=== PATIENT | male | born 1960 | race Caucasian/White ===

== ENCOUNTER 2018-12-08 07:22 | Emergency (ER) | payer BC ==
[2018-12-08 07:32] VITALS: RESP 18; TEMP 98
[2018-12-08] MEDS ORDERED: KETOROLAC 30 MG/ML 1 ML VIAL IVP STA (07:37)
[2018-12-08] MEDS ORDERED: SODIUM CHLORIDE 0.9% 1,000 ML IV STA (07:37)
--- NOTE | 2018-12-08 07:41 | ED ---
General Adult HPI - General Chief complaint: Abdominal Pain Stated complaint: back pain, vomiting Time Seen by Provider: 12/08/18 07:33 Source: patient, RN notes reviewed, old records reviewed Mode of arrival: ambulatory Limitations: no limitations - History of Present Illness Initial comments: 58-year-old male with no chronic medical problems presents with left lower quadrant abdominal pain and left flank pain. Pain began 3 hours prior to arrival after the patient had woken to urinate. Patient denies dysuria or hematuria. No history of kidney stones. Patient states he did have bowel movement this morning which was small, nonbloody. No diarrhea. 2 episodes of vomiting prior to arrival. Patient is not on any daily medications. Pain is dull and aching left flank and left lower quadrant. - Related Data Previous Rx's Medication Instructions Recorded Ibuprofen [Motrin] 600 mg PO Q8HR PRN #24 tab 12/08/18 Tamsulosin [Flomax] 0.4 mg PO DAILY #30 cap 12/08/18 Allergies Allergy/AdvReac Type Severity Reaction Status Date / Time hydrocodone Allergy Hallucinati Verified 12/08/18 07:29 ons Review of Systems ROS Statement: Those systems with pertinent positive or pertinent negative responses have been documented in the HPI. ROS Other: All systems not noted in ROS Statement are negative. Past Medical History Past Medical History: No Reported History History of Any Multi-Drug Resistant Organisms: None Reported Past Surgical History: Orthopedic Surgery Additional Past Surgical History / Comment(s): B knee Past Psychological History: No Psychological Hx Reported Smoking Status: Never smoker Past Alcohol Use History: None Reported Past Drug Use History: None Reported General Exam Limitations: no limitations General appearance: alert, in no apparent distress Head exam: Present: atraumatic, normocephalic Eye exam: Present: normal appearance, PERRL ENT exam: Present: normal exam Neck exam: Present: normal inspection. Absent: tenderness, meningismus Respiratory exam: Present: normal lung sounds bilaterally. Absent: respiratory distress Cardiovascular Exam: Present: regular rate, normal rhythm GI/Abdominal exam: Present: soft. Absent: distended, tenderness, guarding Extremities exam: Present: normal inspection, normal capillary refill. Absent: pedal edema Back exam: Present: normal inspection, full ROM, CVA tenderness (L) Neurological exam: Present: alert, oriented X3, CN II-XII intact. Absent: motor sensory deficit Psychiatric exam: Present: normal affect, normal mood Skin exam: Present: warm, dry, intact. Absent: cyanosis, diaphoretic Course Vital Signs 12/08/18 07:29 Temperature 98 F Pulse Rate 73 Respiratory 18 Rate Blood Pressure 146/95 O2 Sat by Pulse 96 Oximetry - Reevaluation(s) Reevaluation #1: 12/08/18 10:29 Patient's pain resolved, asymptomatic Medical Decision Making - Medical Decision Making 58-year-old male presenting with left flank pain, concern for renal colic. X- ray obtained, negative for radiopaque stone. Urinalysis negative for blood, there is 4+ glucose, normal CBC, CMP significant only for hyperglycemia. CT is obtained, which does show 4 mm stone in the bladder. This represents a passed kidney stone. There is mild [place] of the left ureter and kidney. On reevaluation patient asymptomatic. He will be prescribed Flomax, pain medication. He is given a urine strainer in the emergency department. He will return with worsening pain. He will follow-up with urology. He will follow-up with his primary care physician regarding his elevated sugar. - Lab Data Result diagrams: 12/08/18 07:48 12/08/18 07:48 Lab Results 12/08/18 12/08/18 12/08/18 Range/Units 07:48 07:48 07:48 WBC 7.5 (3.8-10.6) k/uL RBC 6.40 H (4.30-5.90) m/uL Hgb 17.1 (13.0-17.5) gm/dL Hct 52.6 (39.0-53.0) % MCV 82.1 (80.0-100.0) fL MCH 26.7 (25.0-35.0) pg MCHC 32.6 (31.0-37.0) g/dL RDW 12.8 (11.5-15.5) % Plt Count 242 (150-450) k/uL Neutrophils % 78 % Lymphocytes % 12 % Monocytes % 6 % Eosinophils % 2 % Basophils % 0 % Neutrophils # 5.9 (1.3-7.7) k/uL Lymphocytes # 0.9 L (1.0-4.8) k/uL Monocytes # 0.4 (0-1.0) k/uL Eosinophils # 0.2 (0-0.7) k/uL Basophils # 0.0 (0-0.2) k/uL Sodium 139 (137-145) mmol/L Potassium 5.4 H (3.5-5.1) mmol/L Chloride 103 (98-107) mmol/L Carbon Dioxide 29 (22-30) mmol/L Anion Gap 7 mmol/L BUN 24 H (9-20) mg/dL Creatinine 1.10 (0.66-1.25) mg/dL Est GFR (CKD-EPI)AfAm 86 (>60 ml/min/1.73 sqM) Est GFR (CKD-EPI)NonAf 74 (>60 ml/min/1.73 sqM) Glucose 269 H (74-99) mg/dL Calcium 9.7 (8.4-10.2) mg/dL Total Bilirubin 1.1 (0.2-1.3) mg/dL AST 28 (17-59) U/L ALT 64 (21-72) U/L Alkaline Phosphatase 74 (38-126) U/L Total Protein 6.9 (6.3-8.2) g/dL Albumin 4.6 (3.5-5.0) g/dL Lipase 67 (23-300) U/L Urine Color Yellow Urine Appearance Clear (Clear) Urine pH 5.0 (5.0-8.0) Ur Specific [place] 1.021 (1.001-1.035) Urine Protein Trace H (Negative) Urine Glucose (UA) 4+ H (Negative) Urine Ketones Negative (Negative) Urine Blood Negative (Negative) Urine Nitrite Negative (Negative) Urine Bilirubin Negative (Negative) Urine Urobilinogen <2.0 (<2.0) mg/dL Ur Leukocyte Esterase Negative (Negative) Disposition Clinical Impression: Calculus of kidney, Hyperglycemia Disposition: HOME SELF-CARE Condition: Good Instructions: Renal Colic (ED), Kidney Stones (ED) Prescriptions: Ibuprofen [Motrin] 600 mg PO Q8HR PRN #24 tab PRN Reason: Pain Tamsulosin [Flomax] 0.4 mg PO DAILY #30 cap Is patient prescribed a controlled substance at d/c from ED?: No Referrals: None,Stated [Primary Care Provider] - 1-2 days Johanne Brown MD [STAFF PHYSICIAN] - 1-2 days Mika Stewart MD [STAFF PHYSICIAN] - 1-2 days Time of Disposition: 10:30
--- NOTE | 2018-12-08 08:12 | XR ---
EXAMINATION TYPE: XR KUB , 2 VIEWS DATE OF EXAM ORDERED: 12/08/2018 HISTORY: abdominal pain. COMPARISON: None. FINDINGS: Lung bases are clear. Within the abdomen, the abdominal gas pattern is normal. There is no evidence of obstruction or free air. No unusual calcifications are seen. There is a mild S-shaped scoliosis convex to the left in the thoracic region and to the right in the lumbar region. IMPRESSION: NONACUTE ABDOMINAL PICTURE.
[2018-12-08 08:42] LABS: Albumin 4.6 g/dL (3.5-5.0); Calcium 9.7 mg/dL (8.4-10.2); Potassium 5.4 mmol/L (3.5-5.1); Total Bilirubin 1.1 mg/dL (0.2-1.3); Total Protein 6.9 g/dL (6.3-8.2)
[2018-12-08 08:52] LABS: Appearance,Urine Clear (Clear); Bilirubin,Urine Negative (Negative); Blood,Urine Negative (Negative); Color,Urine Yellow; Glucose,Urine (UA) 4+ (Negative); Ketones,Urine Negative (Negative); Leukocyte Esterase,Urine Negative (Negative); Nitrite,Urine Negative (Negative); Protein,Urine Trace (Negative); Specific Gravity,Urine 1.021 (1.001-1.035); Urobilinogen,Urine <2.0 mg/dL (<2.0)
[2018-12-08 08:53] LABS: Basophils % (A) 0 %; Eosinophils # (A) 0.2 k/uL (0-0.7); Eosinophils % (A) 2 %; HCT 52.6 % (39.0-53.0); HGB 17.1 gm/dL (13.0-17.5); Lymphocytes # (A) 0.9 k/uL (1.0-4.8); Lymphocytes % (A) 12 %; MCH 26.7 pg (25.0-35.0); MCHC 32.6 g/dL (31.0-37.0); MCV 82.1 fL (80.0-100.0); Mean Platelet Volume 6.3; Monocytes # (A) 0.4 k/uL (0-1.0); Monocytes % (A) 6 %; Neutrophils # (A) 5.9 k/uL (1.3-7.7); Neutrophils % (A) 78 %; Platelet Count 242 k/uL (150-450); RDW 12.8 % (11.5-15.5); WBC 7.5 k/uL (3.8-10.6)
[2018-12-08] MEDS ORDERED: HYDROmorphone 1 MG/ML 1 ML SYRINGE IVP STA (08:55)
--- NOTE | 2018-12-08 09:54 | CT ---
EXAMINATION TYPE: CT abdomen pelvis wo con DATE OF EXAM: 12/08/2018 COMPARISON: NONE HISTORY: Lt flank pain CT DLP: 683.6 mGycm Automated exposure control for dose reduction was used. FINDINGS: Visualized portions of the lungs are clear. There is no pleural or pericardial fluid. The h eart is not enlarged. There is a small, sliding hiatal hernia. Within the abdomen, the liver, spleen and gallbladder are normal. Both adrenal glands are normal. The pancreas is unremarkable. The right kidney is normal. There is stranding around the left kidney. There is mild hydronephrosis and hydroureter. There is no evidence of ureterolithiasis. There is a 4 mm calculus within the bladder and this may represent a re cently passed calculus. There is no significant retroperitoneal, iliac or inguinal adenopathy. There are scattered diverticula within the left side of the colon. There is no radiographic evidence of diverticulitis. There are also scattered diverticula on the right side of the colon. The appendix is normal. Small bowel loops are normal. There is no evidence of free fluid or free air. There is a direct inguinal hernia on the right containing fat only an indirect inguinal hernia on the left containing fat only. There is degenerative disc disease and facet arthropathy at L4-5. This hypertrophic spondylosis, most marked at L2-3. There is a bridging osteophyte present at T8-9. No bony destructive lesion is seen. IMPRESSION: 1. PROBABLE RECENTLY PASSED CALCULUS WITHIN THE BLADDER WITH RESIDUAL HYDRONEPHROSIS AND HYDROURETER ON THE LEFT. 2. SMALL HIATAL HERNIA. 3. UNCOMPLICATED DIVERTICULOSIS OF THE COLON. 4. DIRECT INGUINAL HERNIA ON THE RIGHT CONTAINING FAT ONLY AN INDIRECT INGUINAL HERNIA ON THE LEFT CO NTAINING FAT ONLY. 5. DEGENERATIVE CHANGES WITHIN THE SPINE.
[2018-12-08 10:43] VITALS: BP 130/84; PULSE 70
== END 2018-12-08 10:43 | disposition home or self-care (01) ==
LOC: EC 07:22
DX: N13.2 Hydronephrosis with renal and ureteral calculous obstruction (principal); R73.9 Hyperglycemia, unspecified; Z88.5 Allergy status to narcotic agent
CPT/HCPCS: 96361 ×2; 96374 ×2; 96375 ×2; 99285 ×2; 36415; 80053; 83690; 85025; 81003; 74018; 74176; J1885; J1170

== ENCOUNTER 2018-12-28 06:50 | Day surgery (SDC) | payer BC ==
[2018-12-25 17:00] VITALS: BMI 31.0
[~2018-12-28 06:50] MED LIST: LACTATED RINGERS 1,000 ML IV SCH
[2018-12-28 07:18] VITALS: RESP 16; TEMP 97.2
[2018-12-28 07:49] LABS: Glucose,Whole Blood 137 mg/dL (75-99)
[2018-12-28] MEDS ORDERED: PROPOFOL 10 MG/ML 20 ML VIAL IV ONE (07:53)
--- NOTE | 2018-12-28 07:56 | P.GSHP ---
History of Present Illness H&P Date: 12/28/18 Chief Complaint: Screening colonoscopy This a 58-year-old male who presents today for screening colonoscopy. Patient denies any significant GI complaints. Past Medical History Past Medical History: Diabetes Mellitus Additional Past Medical History / Comment(s): HX OF BROKEN BACK., PASSED KIDNEY STONE (NOV 2018)., POSSIBLE ENLARGED PROSTATE., NEW DIAGNOSIS OF DIABETES. History of Any Multi-Drug Resistant Organisms: None Reported Past Surgical History: Orthopedic Surgery Additional Past Surgical History / Comment(s): GIORGIO KNEE SURGERY - ONE ACL REPAIR , COLONOSCOPY. Past Anesthesia/Blood Transfusion Reactions: Motion Sickness, Postoperative Nausea & Vomiting (PONV) Past Psychological History: No Psychological Hx Reported Smoking Status: Former smoker Past Alcohol Use History: Occasional Additional Past Alcohol Use History / Comment(s): QUIT SMOKING 1985, SMOKED 2 PPD., SMOKED 10 YEARS. Past Drug Use History: None Reported - Past Family History Mother Family Medical History: Cancer Additional Family Medical History / Comment(s): BREAST CANCER Medications and Allergies Home Medications Medication Instructions Recorded Confirmed Type Ibuprofen [Motrin] 600 mg PO Q8HR PRN #24 tab 12/08/18 12/25/18 Rx Tamsulosin [Flomax] 0.4 mg PO DAILY #30 cap 12/08/18 12/28/18 Rx metFORMIN HCL [Glucophage] 500 mg PO BID 12/25/18 12/28/18 History Allergies Allergy/AdvReac Type Severity Reaction Status Date / Time hydrocodone Allergy Hallucinati Verified 12/25/18 16:33 ons Surgical - Exam Vital Signs Temp Pulse Resp BP Pulse Ox 97.2 F L 59 L 16 120/69 95 12/28/18 07:14 12/28/18 07:14 12/28/18 07:14 12/28/18 07:14 12/28/18 07:14 - General well developed, well nourished, no distress - Eyes PERRL - ENT normal pinna - Neck no masses - Respiratory normal expansion - Cardiovascular Rhythm: regular - Abdomen Abdomen: soft, non tender Results - Labs Abnormal Lab Results - Last 24 Hours (Table) 12/28/18 Range/Units 07:23 POC Glucose (mg/dL) 137 H (75-99) mg/dL Assessment and Plan Assessment: We'll perform screening colonoscopy.
--- NOTE | 2018-12-28 08:04 | P.OP ---
Date of Procedure: 12/28/18 Preoperative Diagnosis: Screening colonoscopy Postoperative Diagnosis: Diverticulosis Procedure(s) Performed: Colonoscopy Anesthesia: MAC Surgeon: Jeremiah Keene Pathology: none sent Condition: stable Disposition: PACU Description of Procedure: The patient's placed on the endoscopy table in the lateral position. He received IV sedation. Digital rectal exam was performed which revealed no abnormalities. The prostate was symmetric without nodules. The flexible colonoscope was then placed patient anus passed throughout the entire colon. The ileocecal valve was visualized. Cecum, ascending and transverse colon appeared O. In the descending and sigmoid colon there is mild diverticular changes. Scope was then brought back the rectum and this appeared normal. Scope was withdrawn for patient.
[2018-12-28 08:29] VITALS: BP 136/82; PULSE 62
== END 2018-12-28 08:47 | disposition home or self-care (01) ==
LOC: ORWHC2ENDO 06:50
PROVIDERS: ATTEND Surgery
DX: Z12.11 Encounter for screening for malignant neoplasm of colon (principal); K57.30 Diverticulosis of large intestine without perforation or abscess without bleeding; E11.9 Type 2 diabetes mellitus without complications; N40.0 Benign prostatic hyperplasia without lower urinary tract symptoms; Z79.84 Long term (current) use of oral hypoglycemic drugs; Z79.899 Other long term (current) drug therapy; Z88.5 Allergy status to narcotic agent; Z87.442 Personal history of urinary calculi; Z87.891 Personal history of nicotine dependence
CPT/HCPCS: J2704; G0121

== ENCOUNTER 2020-07-12 19:30 | Emergency (ER) | payer BC ==
[2020-07-12 19:34] VITALS: RESP 20; TEMP 98.1
[2020-07-12] MEDS ORDERED: TOPICAL SKIN ADHESIVE 1 EACH AMP TOPICAL ONE (19:40)
--- NOTE | 2020-07-12 19:56 | ED ---
Wound/Laceration HPI - General Chief Complaint: Wound/Laceration Stated Complaint: R Finger Injury Time Seen by Provider: 07/12/20 19:37 Source: patient Mode of arrival: ambulatory Limitations: no limitations - History of Present Illness Initial Comments: 81-year-old male presenting today for chief complaint of right fourth digit laceration. Patient states that he was working on his motorcycle when a piece of sheet like metal cut his fourth right finger. Right near the nail. Patient states that he cannot control bleeding and presented to the ER. Patient states he is unsure after looking at if needed sutures or not. States his tetanus up-to-date within the last 10 years - Related Data Home Medications Medication Instructions Recorded Confirmed metFORMIN HCL [Glucophage] 500 mg PO BID 12/25/18 12/28/18 Previous Rx's Medication Instructions Recorded Ibuprofen [Motrin] 600 mg PO Q8HR PRN #24 tab 12/08/18 Tamsulosin [Flomax] 0.4 mg PO DAILY #30 cap 12/08/18 Allergies Allergy/AdvReac Type Severity Reaction Status Date / Time hydrocodone Allergy Hallucinati Verified 07/12/20 19:33 ons Review of Systems ROS Statement: Those systems with pertinent positive or pertinent negative responses have been documented in the HPI. ROS Other: All systems not noted in ROS Statement are negative. Past Medical History Past Medical History: Diabetes Mellitus Additional Past Medical History / Comment(s): HX OF BROKEN BACK., PASSED KIDNEY STONE (NOV 2018)., POSSIBLE ENLARGED PROSTATE., NEW DIAGNOSIS OF DIABETES. History of Any Multi-Drug Resistant Organisms: None Reported Past Surgical History: Orthopedic Surgery Additional Past Surgical History / Comment(s): GIORGIO KNEE SURGERY - ONE ACL REPAIR, COLONOSCOPY. Past Anesthesia/Blood Transfusion Reactions: Motion Sickness, Postoperative Nausea & Vomiting (PONV) Past Psychological History: No Psychological Hx Reported Smoking Status: Never smoker Past Alcohol Use History: Occasional Past Drug Use History: None Reported - Past Family History Mother Family Medical History: Cancer Additional Family Medical History / Comment(s): BREAST CANCER General Exam - General Exam Comments Initial Comments: General: The patient is awake and alert, in no distress, and does not appear acutely ill. Eye: +3 mm pupils are equal, round and reactive to light, extra-ocular movements are intact. No nystagmus. There is normal conjunctiva bilaterally. No signs of icterus. Ears, nose, mouth and throat: There are moist mucous membranes and no oral lesions. Neck: The neck is supple, there is no tenderness or JVD. Musculoskeletal: Semilunar skin flap adjacent to nail bed of right fourth digits dorsal aspect. No foreign body, relatively superficial, no exposure of underlying structures. Normal ROM, no tenderness at MCP, DIP and PIP joints, strength 5/5. Sensation intact. Radial pulses equal bilaterally 2+. Neurological: A&O x 3. CN II-XII intact grossly, There are no obvious motor or sensory deficits. Coordination appears grossly intact. Speech is normal. Skin: Skin is warm and dry and no rashes or lesions are noted. Psychiatric: Cooperative, appropriate mood & affect, normal judgment. Limitations: no limitations Course Vital Signs 07/12/20 07/12/20 19:32 20:25 Temperature 98.1 F 98.1 F Pulse Rate 75 73 Respiratory 20 20 Rate Blood Pressure 133/78 129/77 O2 Sat by Pulse 97 98 Oximetry Medical Decision Making - Medical Decision Making bleeding controlled on arrival. superficial flap, cleansed, irrigated and closed with exofin. patient tdap UTD. Recommended close monitoring for infection and f/u with PCP. Patient agreeable and discharged appearing well. Discussed case with Dr. vickers. Disposition Clinical Impression: Flap laceration of skin Disposition: HOME SELF-CARE Condition: Good Instructions (If sedation given, give patient instructions): Finger Laceration (ED), Skin Adhesive Care (ED) Additional Instructions: Please use medication as discussed. Please follow-up with family doctor in the next 2 days. Keep area covered. Please return to emergency room if the symptoms increase or worsen or for any other concerns. Is patient prescribed a controlled substance at d/c from ED?: No Referrals: Abdirahman Garber DO [Primary Care Provider] - 1-2 days Time of Disposition: 19:55
[2020-07-12 20:27] VITALS: BP 129/77; PULSE 73
--- NOTE | 2020-07-14 09:33 | CDI ---
Dear Kady Murillo PA-C> PLEASE DO ADDENDUM FOR LENGTH OF LACERATION REPAIR, REQUIRED- Thank you , zuleika . medical science liaison. If you have any questions, please contact Manager Business Systems at [phone] [facility]
== END 2020-07-12 20:13 | disposition home or self-care (01) ==
LOC: EC 19:30
DX: S61.214A Laceration without foreign body of right ring finger without damage to nail, initial encounter (principal); E11.9 Type 2 diabetes mellitus without complications; Z79.84 Long term (current) use of oral hypoglycemic drugs; Z88.5 Allergy status to narcotic agent; Z98.890 Other specified postprocedural states; W26.8XXA Contact with other sharp object(s), not elsewhere classified, initial encounter; Y92.009 Unspecified place in unspecified non-institutional (private) residence as the place of occurrence of the external cause
CPT/HCPCS: 12001; 99282

== ENCOUNTER → 2022-02-02 | Outpatient (CLI) | payer BC ==
--- NOTE | 2022-02-02 11:40 | FL ---
EXAMINATION TYPE: FL UGI air w small bowel DATE OF EXAM: 02/02/2022 COMPARISON: NONE HISTORY: Nausea TECHNIQUE: A double contrast UGI study is performed with small bowel follow through. A total of 184 seconds of fluoroscopic time was utilized during procedure and 25 images obtained. FINDINGS: Hazardous Material Specialist image of the abdomen shows no gross abnormality. The esophagus shows normal motility and emptying into the stomach. There is a sliding hiatal hernia. Gastroesophageal reflux is identified to the upper thoracic esophagus The stomach shows normal distensibility, peristalsis, and mucosal folds. No evidence of any mass or ulcer disease, coating of the stomach is less than optimal. The duodenal bulb and sweep are unremarkable. The small bowel study shows normal transit to the colon in less than 30 minutes. There is normal muc osal fold pattern throughout the small bowel. There is no evidence of any stricture or filling defec t noted. The terminal ileum is not well seen. IMPRESSION: Hiatal hernia and gastroesophageal reflux noted on the upper GI study with somewhat rapi d transit through small bowel follow the colon.
== END | disposition home or self-care (01) ==
LOC: RADFLMAIN 08:22
PROVIDERS: ATTEND Family Medicine
DX: K44.9 Diaphragmatic hernia without obstruction or gangrene (principal); K21.9 Gastro-esophageal reflux disease without esophagitis
CPT/HCPCS: 74240; 74248

== ENCOUNTER 2025-05-20 06:28 | Day surgery (SDC) | payer BC ==
[2025-05-19 09:21] VITALS: BMI 30.4
[~2025-05-20 06:28] MED LIST changes: -LACTATED RINGERS 1,000 ML IV SCH; +LIDOCAINE 1% (10MG/ML) FOR IV START INTRADERMA PRN
[2025-05-20] MEDS: IV FLUID CONTINUATION 1,000 ML IV ONE (07:00)
[2025-05-20 07:09] VITALS: TEMP 97.2
[2025-05-20 07:24] LABS: Glucose,Whole Blood 125 mg/dL (70-110)
[2025-05-20] MEDS: LACTATED RINGERS 1,000 ML IV SCH (07:25)
[2025-05-20] MEDS: ONDANSETRON 4 MG/2 ML VIAL IVP STA (07:26)
[2025-05-20] MEDS ORDERED: PROPOFOL 10 MG/ML 20 ML VIAL IV ONE (07:52)
--- NOTE | 2025-05-20 08:05 | P.PCN ---
Date of Procedure: 05/20/25 Procedure(s) Performed: BRIEF HISTORY: Patient is a 64-year-old pleasant white male scheduled for an elective colonoscopy as a part of screening for colon cancer and family's of colon cancer. His brother was diagnosed with colon cancer at age 64. PROCEDURE PERFORMED: Colonoscopy with snare polypectomy. PREOPERATIVE DIAGNOSIS: Screening for colon cancer and family history of colon cancer. IV sedation per Anesthesia. PROCEDURE: After informed consent was obtained, the patient, was brought into the endoscopy unit. IV sedation was administered by Anesthesia under continuous monitoring. Digital rectal examination was normal. Initially the Olympus CF-160 flexible video colonoscope was then inserted in the rectum, gradually advanced into the cecum without any difficulty. Careful examination was performed as the scope was gradually being withdrawn. Ileocecal valve and the appendiceal orifice were visualized and appeared normal. Prep was excellent. Mucosa of the cecum, ascending colon, transverse colon, appeared normal. The descending colon there was a 5 mm polyp that was removed by cold snare polypectomy. Scattered left- sided diverticulosis seen. Rest of the descending colon, sigmoid colon, and rectum appeared normal. Retroflexion was performed in the rectum and no lesions were seen. The patient tolerated the procedure well. Impression: 5 mm descending colon polyp status post cold snare polypectomy Scattered left-sided diverticulosis RECOMMENDATIONS: Findings of this examination were discussed with the patient as well as his family. He was advised to follow-up with the biopsy results. Recommended repeat colonoscopy in 5 years because of the family history of colon cancer
[2025-05-20 08:17] VITALS: BP 108/67; RESP 18
[2025-05-20 08:28] VITALS: PULSE 60
== END 2025-05-20 08:55 ==
LOC: ORWHC2ENDO 06:28
PROVIDERS: ATTEND Internal Medicine Gastroenterology
DX: Z12.11 Encounter for screening for malignant neoplasm of colon (principal); K63.5 Polyp of colon; K57.30 Diverticulosis of large intestine without perforation or abscess without bleeding; E11.9 Type 2 diabetes mellitus without complications; M19.90 Unspecified osteoarthritis, unspecified site; K21.9 Gastro-esophageal reflux disease without esophagitis; Z80.0 Family history of malignant neoplasm of digestive organs; Z87.891 Personal history of nicotine dependence; Z79.84 Long term (current) use of oral hypoglycemic drugs; Z79.899 Other long term (current) drug therapy; Z88.5 Allergy status to narcotic agent
CPT/HCPCS: 88305; 45385; J2405; J2704